=== PATIENT | male | born 1975 | race African-American/Black ===

== ENCOUNTER 2016-08-20 00:52 | Emergency (ER) | payer OTHER ==
[2016-08-20 01:14] VITALS: BP 125/89
--- NOTE | 2016-08-20 01:51 | ERNOTE ---
Abdominal HPI - General Chief Complaint: Abdominal Pain Time Seen by Provider: 08/20/16 01:43 Source: patient Exam Limitations: no limitations - Immun/Allergies/Home Medications Immunizatons: IMMUNIZATION HX Immunizations Up to Date Yes History of Influenza Vaccine Yes Hx Pneumococcal Vaccination No Allergies/Adverse Reactions: Allergies No Known Allergies Allergy (Verified 03/10/16 09:54) Home Medications: HOME MEDICATIONS Ferrous Sulfate 325 mg PO DAILY 03/10/16 [Last Taken Unknown] Omeprazole 40 mg PO DAILY 03/10/16 [Last Taken Unknown] predniSONE [Prednisone] 10 mg PO DAILY #40 tablet 08/20/16 [Last Taken Unknown] - History of Present Illness Narrative: Pt states he is having a flare of crohns disease. Pt states he is now having symptoms in his left shoulder and eye. 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 Timing: getting worse Quality: moderate, severe Activities at Onset: none Modifying Factors - (Improves): Present: analgesics - minimal help Modifying Factors - (Worsens): Present: movement Prior Treatment: Present: other - had surgery on abdomen in May Review of Systems - Review of Systems Constitutional: Present: fatigue EYE: Present: eye pain - left eye ENT: Present: no symptoms reported Respiratory: Present: no symptoms reported Cardiology: Present: no symptoms reported Gastrointestinal/Abdominal: Present: abdominal pain, eating less Genitourinary: Absent: frequency, pain, dysuria Musculoskeletal: Present: joint pain - left shoulder Skin: Present: no symptoms reported Neurological: Present: no symptoms reported Endocrine: Present: no symptoms reported Hematologic/Lymphatic: Present: no symptoms reported - Patient's Past Medical History Patient History - Medical: Chronic Pain, GERD, Other Patient History - Cardiac/Respiratory: No pertinent hx Patient History - Cancer: No Hx of Cancer Patient History - Surgical Procedures: Appendectomy, Colon Resection, Colonoscopy, EGD - Family History Mother Family History - Medical: No pertinent hx Family History - Cardiac/Respiratory: Asthma Father Family History - Medical: No pertinent hx Family History - Cardiac/Respiratory: No pertinent hx Brother Family History - Cardiac/Respiratory: Asthma Sister Family History - Medical: No pertinent hx Family History - Cardiac/Respiratory: No pertinent hx Grandmother-Maternal Family History - Medical: History Unknown Family History - Cardiac/Respiratory: History Unknown Family History - Cancer: History Unknown - Social History Living Situations: home Smoking Status: Current every day smoker Have you smoked in the past 12 months: Yes Do you dip or chew tobacco: No Patient requests Smoking Cessation Consult: No Initiate information on Smoking Cessation: No Alcohol Use: none Drug Use: none Physical Exam - Physical Exam General Appearance: Present: wd/wn, alert, mild distress Eye Exam: PERRL: bilateral, EOMI: bilateral, Sclera injection: left Ears, Nose, Throat: Present: hearing grossly normal Neck: Present: normal inspection Respiratory: Present: no respiratory distress, no accessory muscle use Gastrointestinal/Abdominal: Present: normal bowel sounds, tenderness - diffuse mild-mod. Absent: guarding, rebound Extremity Exam: Present: normal inspection, non-tender, no edema, normal range of motion Neurological Exam: Present: alert, oriented, normal mood/affect, no motor/ sensory deficits Skin Exam: Present: normal color, warm/dry ED Progress - Results and Orders Patient's Lab Results:: I have reviewed the patient's lab results. Results and Orders: Laboratory Tests 08/20/16 08/20/16 08/20/16 01:47 01:47 01:47 WBC 6.3 Hgb 13.2 L Hct 41.6 L Plt Count 356 ESR 46 H Sodium 141 Potassium 4.1 Chloride 104 BUN 10 Creatinine 0.86 Est GFR (Non-Af Amer) 126 Random Glucose 112 H Calcium 9.1 Total Bilirubin 0.2 AST 16 ALT 32 Alkaline Phosphatase 108 C-Reactive Prot, Quant 7.1 H Total Protein 8.0 Albumin 3.0 L - Vital Signs Patient's Vital Signs:: I have reviewed the patient's vital signs. Vital Signs: Vital Signs 08/20/16 01:08 Temperature 36.1 C L Pulse Rate 93 Respiratory 16 Rate Blood Pressure 125/89 O2 Sat by Pulse 100 Oximetry - X-Ray X-Ray #1 X-Ray: abdomen Interpretation: Interp. by me X-ray Comments: mild retained stool mostly on the right. No evidence for obstruction - Progress/Reassessment Chief Complaint: Abdominal Pain Progress:: Unchanged Departure - Departure Clinical Impression: Acute Crohn's disease Qualifiers: Digestive disease complication type: without complication Qualified Code(s): K50.90 - Crohn's disease, unspecified, without complications Disposition: Home Follow Up Needed Condition: Fair Instructions: Crohn Disease Additional Instructions: See your GI doctor if not improving Referrals: Enzo Moya MD [Primary Care Provider] - Prescriptions: predniSONE [Prednisone] 10 mg PO DAILY #40 tablet
[2016-08-20 02:11] LABS: Hematocrit 41.6 % (42.0-52.0); Hemoglobin 13.2 gm/dL (13.5-18.0); Mean Cell Volume 85.4 fl (78-100); Mean Corpuscular Hemoglobin 27.1 pg (27-31); Mean Corpuscular Hgb Conc 31.7 g/dl (32-36); Mean Platelet Volume 8.8 fl (6.0-9.5); Neutrophil # 3.2 K/mm3 (1.3-6.0); Neutrophil % 50.9 % (42-75.0); Platelet Count 356 K/mm3 (150-450); Red Blood Count 4.87 M/mm3 (4.7-6.0); Red Cell Distribution Width 17.8 % (11.5-14.0); White Blood Count 6.3 K/mm3 (4.0-10.5)
[2016-08-20 02:26] LABS: Anion Gap 13.7 mmol/L (6.8-13.8); BUN/Creatinine Ratio 11.6 (9.0-21.6); Bilirubin, Total 0.2 mg/dL (0.0-1.1); CRP 7.1 mg/dL (0.0-0.9); Ca. Corrected For Albumin 9.6 mg/dL (8.4-10.2); Calcium * 9.1 mg/dL (7.9-10.9); Carbon Dioxide 27.4 mmol/L (24-32.6); Potassium 4.1 mmol/L (3.4-4.6)
[2016-08-20] MEDS ORDERED: ACETAMINOPHEN 500 MG TABLET PO ONE (02:28)
[2016-08-20] MEDS ORDERED: predniSONE 20 MG TABLET PO ONE (03:01)
[2016-08-20] MEDS ORDERED: predniSONE 20 MG TABLET ONE (03:01)
== END 2016-08-20 03:10 | disposition home or self-care (01) ==
LOC: ER 00:52
DX: K50.90 Crohn's disease, unspecified, without complications (principal); F17.200 Nicotine dependence, unspecified, uncomplicated; Z90.49 Acquired absence of other specified parts of digestive tract

== ENCOUNTER 2017-06-05 12:23 | Emergency (ER) | payer OTHER ==
--- NOTE | 2017-06-05 12:47 | ERNOTE ---
Abdominal HPI - Narrative Date of Service: 06/05/17 - General Chief Complaint: Abdominal Pain Time Seen by Provider: 06/05/17 12:27 Source: patient Exam Limitations: no limitations - Immun/Allergies/Home Medications Immunizatons: IMMUNIZATION HX Immunizations Up to Date Yes History of Influenza Vaccine Yes Hx Pneumococcal Vaccination No Allergies/Adverse Reactions: Allergies No Known Allergies Allergy (Verified 06/05/17 12:30) Home Medications: HOME MEDICATIONS Ferrous Sulfate 325 mg PO DAILY 03/10/16 [Last Taken Unknown] Omeprazole 40 mg PO DAILY 03/10/16 [Last Taken Unknown] predniSONE [Prednisone] 10 mg PO DAILY #40 tablet 08/20/16 [Last Taken Unknown] predniSONE [Prednisone] 20 mg PO DAILY #10 tablet 06/05/17 [Last Taken Unknown] - History of Present Illness Timing: getting worse Quality: moderate, cramping Activities at Onset: none Modifying Factors - (Improves): Present: analgesics, other - prednisone Associated Symptoms: Present: diarrhea-mucous, loss of appetite, weakness, other - body aches Prior Abdominal Problems: Present: none Prior Treatment: Present: treated by physician - States he is out of his medication and cannot get in to his family provider to refill them. Review of Systems - Narrative Narrative: Patient states he is having a crohns flareup since he is out of his medication. States he usually takes a course of prednisone the first week of every month and he is out. States his symptoms are consistent with previous flareups. No inconsistent symptoms. - Review of Systems Constitutional: Present: weakness, other - body aches with diarrhea. EYE: Present: blurred vision, other - States his vision always changes with flareups ENT: Present: no symptoms reported Respiratory: Present: no symptoms reported Cardiology: Present: no symptoms reported Gastrointestinal/Abdominal: Present: other - No specific abdominal pain. Rather a global body pain. Genitourinary: Present: no symptoms reported Musculoskeletal: Present: muscle stiffness Skin: Present: no symptoms reported Neurological: Present: no symptoms reported Endocrine: Present: no symptoms reported Hematologic/Lymphatic: Present: no symptoms reported Psych: Present: no symptoms reported - Patient's Past Medical History Patient History - Medical: Chronic Pain, GERD, Other Patient History - Cardiac/Respiratory: No pertinent hx Patient History - Cancer: No Hx of Cancer Patient History - Surgical Procedures: Appendectomy, Colon Resection, Colonoscopy, EGD Patient History - Other: Immunosuppresive Tx >3mo, Other - Family History Mother Family History - Medical: No pertinent hx Family History - Cardiac/Respiratory: Asthma Father Family History - Medical: No pertinent hx Family History - Cardiac/Respiratory: No pertinent hx Brother Family History - Cardiac/Respiratory: Asthma Sister Family History - Medical: No pertinent hx Family History - Cardiac/Respiratory: No pertinent hx Grandmother-Maternal Family History - Medical: History Unknown Family History - Cardiac/Respiratory: History Unknown Family History - Cancer: History Unknown - Social History Abuse History: No History of abuse Psych History: No pertinent hx Smoking Status: Current every day smoker Have you smoked in the past 12 months: Yes - Immunizations Immunizations Up to Date: Yes Hx Pneumococcal Vaccination: No History of Influenza Vaccine: Yes Physical Exam - Physical Exam General Appearance: Present: wd/wn, alert, moderate distress Head Exam: Present: normal inspection Eye Exam: Normal inspection: bilateral, PERRL: bilateral, EOMI: bilateral Ears, Nose, Throat: Present: normal ENT inspection Neck: Present: normal inspection Respiratory: Present: no respiratory distress, normal breath sounds, no accessory muscle use, chest nontender, lungs clear Cardiovascular/Chest: Present: regular rate, rhythm, no murmur, normal peripheral pulses Peripheral Pulses: N=norm/S=strong/W=weak/B=bound/A=absent: Radial (R): Normal, Radial (L): Normal Gastrointestinal/Abdominal: Present: normal bowel sounds, nontender, nondistended, soft Back Exam: Present: normal inspection, normal range of motion, no CVA tenderness , no vertebral tenderness Extremity Exam: Present: normal inspection, normal range of motion, no edema Neurological Exam: Present: alert, oriented, normal mood/affect, no motor/ sensory deficits Skin Exam: Present: normal color, warm/dry ED Progress - Results and Orders Patient's Lab Results:: I have reviewed the patient's lab results. - Vital Signs Patient's Vital Signs:: I have reviewed the patient's vital signs. Vital Signs: Vital Signs 06/05/17 12:27 Pulse Rate 98 Respiratory 14 Rate Blood Pressure 147/106 O2 Sat by Pulse 98 Oximetry - Progress/Reassessment Chief Complaint: Abdominal Pain Progress:: Improved Progress Note-Subjective: 06/05/17 13:45 States he can tell he is starting to feel better. Departure Clinical Impression: Crohn's disease - Departure Disposition: Home self-care Condition: Good Additional Instructions: You have a script for Imuran at the pharmacy so pick that up and start today. I will also place you on a tapering dose of steroid. Follow up with family provider jael for instructions on continuation of prednisone. Let us know if you worsen or do not improve. Referrals: Enzo Moya MD [Primary Care Provider] - Prescriptions: predniSONE [Prednisone] 20 mg PO DAILY #10 tablet
[2017-06-05] MEDS ORDERED: predniSONE 20 MG TABLET PO ONE (12:49)
[2017-06-05] MEDS ORDERED: PANTOPRAZOLE SODIUM 40 MG TABLET.EC PO ONE (12:50)
[2017-06-05] MEDS ORDERED: predniSONE 20 MG TABLET ONE (12:54)
[2017-06-05] MEDS ORDERED: PANTOPRAZOLE SODIUM 40 MG TABLET.EC ONE (12:54)
[2017-06-05 13:29] LABS: Hematocrit 40.4 % (42.0-52.0); Hemoglobin 13.2 gm/dL (13.5-18.0); Mean Cell Volume 90.4 fl (78-100); Mean Corpuscular Hemoglobin 29.5 pg (27-31); Mean Corpuscular Hgb Conc 32.7 g/dl (32-36); Mean Platelet Volume 9.4 fl (6.0-9.5); Neutrophil % 38.7 % (42-75.0); Platelet Count 364 K/mm3 (150-450); Red Blood Count 4.47 M/mm3 (4.7-6.0); White Blood Count 5.2 K/mm3 (4.0-10.5)
[2017-06-05 13:43] LABS: Albumin * 3.1 gm/dl (3.4-5.0); Anion Gap 10.5 mmol/L (6.8-13.8); Bilirubin, Total 0.2 mg/dL (0.0-1.1); Ca. Corrected For Albumin 9.1 mg/dL (8.4-10.2); Calcium * 8.7 mg/dL (7.9-10.9); Carbon Dioxide 26.8 mmol/L (24-32.6); Potassium 3.3 mmol/L (3.4-4.6)
[2017-06-05 13:58] VITALS: BP 139/103
== END 2017-06-05 13:57 | disposition home or self-care (01) ==
LOC: ER 12:23
DX: F17.200 Nicotine dependence, unspecified, uncomplicated (principal); K50.90 Crohn's disease, unspecified, without complications